=== PATIENT | male | born 1985 | race American Indian/Alaskan Native ===

== ENCOUNTER 2019-04-28 01:41 | Emergency (ER) | payer MEDICAID ==
[2019-04-28] MEDS ORDERED: IBUPROFEN PO ONE (02:12)
[2019-04-28] MEDS ORDERED: BOOSTRIX IM ONE (02:12)
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
[2019-04-28] MEDS ORDERED: THERMAZENE 50 GRAM TP ONE (03:39)
[2019-04-28 04:16] VITALS: BP 110/73
== END 2019-04-28 04:23 | disposition home or self-care (01) ==
LOC: ED 01:41
DX: S00.83XA Contusion of other part of head, initial encounter (principal); S80.12XA Contusion of left lower leg, initial encounter; F17.200 Nicotine dependence, unspecified, uncomplicated; V03.99XA Pedestrian with other conveyance injured in collision with car, pick-up truck or van, unspecified whether traffic or nontraffic accident, initial encounter; Y93.89 Activity, other specified; Y92.410 Unspecified street and highway as the place of occurrence of the external cause; Y99.8 Other external cause status
CPT/HCPCS: 70450; 70486; 90715; 96372; 99283